=== PATIENT | male | born 1965 | race Caucasian/White ===

== ENCOUNTER 2018-07-12 07:41 | Inpatient (IN) | payer MEDICAID ==
[~2018-07-12] VITALS: Ht 172.7 cm; Wt 86.4 kg
[2018-07-12 08:35] LABS: BASOPHIL % 0.2 % (0-2); PLATELET COUNT 270 x10^3mcL (130-400)
[2018-07-12 08:45] LABS: CALCIUM 9.3 mg/dL (8.5-10.1); CARBON DIOXIDE 21.8 mmol/L (21-32); CHLORIDE SERUM 103 mmol/L (98-107); CREATININE SERUM 1.3 mg/dL (0.7-1.3); GFR1 > 60 mL/min; GLUCOSE SERUM 160 mg/dL (74-106); POTASSIUM SERUM 3.5 mmol/L (3.5-5.1); SODIUM SERUM 138 mmol/L (136-145)
[2018-07-12 08:46] LABS: CK-MB 0.8 ng/mL (0-3.6); FREE T4 1.19 ng/dL (0.76-1.46); FREE THYROXINE INDEX 3.9 ug/dL (1.4-4.5); T3 TOTAL 1.15 ng/mL; T4(THYROXINE) 11.9 ug/dL (4.7-13.3)
[2018-07-12 08:50] LABS: RED CELL DISTRIBUTION WIDTH 14.6 % (11.5-14.5)
[2018-07-12 08:55] LABS: microscopic required? YES; urine erythrocyte NEGATIVE (NEGATIVE)
[2018-07-12 09:04] LABS: ALBUMIN 4.2 g/dL (3.4-5.0); ALKALINE PHOSPHATASE 78 U/L (46-116); ALT/SGPT 36 U/L (16-63); AST/SGOT 18 U/L (15-37); BILIRUBIN TOTAL 0.41 mg/dL (0.20-1.00)
[2018-07-12 09:08] LABS: TOTAL PROTEIN, SERUM 8.9 g/dL (6.4-8.2)
[2018-07-12 09:08] LABS: AMPHETAMINE QUAL UR NONE DETECTED (See below)
[2018-07-12 09:35] LABS: ERYTHROCYTE SED RATE 13 mm/hr (0-20)
[2018-07-12 09:36] LABS: C REACTIVE PROTEIN < 0.2 mg/dL (<=0.9)
[2018-07-12 11:56] VITALS: BP 141/71
[2018-07-12 12:17] LABS: CHOLESTEROL/HDL RATIO 4.5
[2018-07-12 16:33] VITALS: BP 148/77
[2018-07-12 21:10] VITALS: BP 151/81
[2018-07-12 22:00] VITALS: BP 138/81; BP 138/82
[2018-07-13 05:43] VITALS: BP 132/74
[2018-07-13 06:10] LABS: CALCIUM 8.3 mg/dL (8.5-10.1); CARBON DIOXIDE 27.5 mmol/L (21-32); CHLORIDE SERUM 106 mmol/L (98-107); GFR1 > 60 mL/min; GLUCOSE SERUM 93 mg/dL (74-106); POTASSIUM SERUM 4.9 mmol/L (3.5-5.1); SODIUM SERUM 141 mmol/L (136-145)
[2018-07-13 06:15] LABS: BASOPHIL % 0.4 % (0-2); PLATELET COUNT 238 x10^3mcL (130-400); RED CELL DISTRIBUTION WIDTH 14.5 % (11.5-14.5)
[2018-07-13 09:09] VITALS: BP 149/77
[2018-07-13 09:50] VITALS: BP 149/77
== END 2018-07-13 12:18 | disposition home or self-care (01) | DRG 243 ==
LOC: ED 07:41 → DU 10:30
PROVIDERS: Internal Medicine; Specialist
DX: K21.9 Gastro-esophageal reflux disease without esophagitis (principal); N17.0 Acute kidney failure with tubular necrosis; E78.5 Hyperlipidemia, unspecified; I16.0 Hypertensive urgency; R80.9 Proteinuria, unspecified
CPT/HCPCS: 36600; 83880; 84439; J3475; J7030; Q0092; Q9967

== ENCOUNTER 2020-02-22 04:23 | Inpatient (IN) | payer OTHER ==
[~2020-02-22] VITALS: Ht 172.7 cm; Wt 89.4 kg
[2020-02-22 05:11] LABS: BASOPHIL % 0.2 % (0-2); PLATELET COUNT 236 x10^3mcL (130-400); RED CELL DISTRIBUTION WIDTH 14.5 % (11.5-14.5)
[2020-02-22 05:26] LABS: ALBUMIN 3.7 g/dL (3.4-5.0); BILIRUBIN TOTAL 0.3 mg/dL (0.20-1.00); CALCIUM 8.6 mg/dL (8.5-10.1); CARBON DIOXIDE 26.9 mmol/L (21-32); CREATININE SERUM 1.4 mg/dL (0.7-1.3); MAGNESIUM 1.8 mg/dL (1.8-2.4); TOTAL PROTEIN, SERUM 7.5 g/dL (6.4-8.2)
[2020-02-22 05:33] LABS: T3 TOTAL 1.2 ng/mL
[2020-02-22 05:34] LABS: FREE T4 1.15 ng/dL (0.76-1.46); FREE THYROXINE INDEX 3.3 ug/dL (1.4-4.5); T4(THYROXINE) 9.9 ug/dL (4.7-13.3)
[2020-02-22 05:39] LABS: AMPHETAMINE QUAL UR NONE DETECTED (See below)
[2020-02-22 05:58] LABS: microscopic required? YES; urine erythrocyte TRACE (NEGATIVE)
[2020-02-22] MEDS ORDERED: ACID REDUCER20 MG PO (06:17)
[2020-02-22 08:31] VITALS: BP 169/72
[2020-02-22 08:49] LABS: CHOLESTEROL/HDL RATIO 5.7
[2020-02-22 12:02] VITALS: BP 165/87
[2020-02-22 22:35] VITALS: BP 162/80
[2020-02-23 05:36] VITALS: BP 172/85
[2020-02-23 06:31] LABS: BASOPHIL % 0.4 % (0-2); PLATELET COUNT 228 x10^3mcL (130-400)
[2020-02-23 06:45] LABS: RED CELL DISTRIBUTION WIDTH 14.7 % (11.5-14.5)
[2020-02-23 06:54] LABS: CALCIUM 8.7 mg/dL (8.5-10.1); CARBON DIOXIDE 25.9 mmol/L (21-32); CHLORIDE SERUM 105 mmol/L (98-107); GFR1 > 60 mL/min; GLUCOSE SERUM 103 mg/dL (74-106); MAGNESIUM 2.3 mg/dL (1.8-2.4); POTASSIUM SERUM 3.7 mmol/L (3.5-5.1); SODIUM SERUM 140 mmol/L (136-145)
[2020-02-23 08:32] VITALS: BP 180/89
[2020-02-23] MEDS ORDERED: METOPROLOL TART25 M1 PO (11:04)
[2020-02-23] MEDS ORDERED: LIPITOR10 MG PO (11:04)
[2020-02-23 11:06] VITALS: BP 165/91
[2020-02-23] MEDS ORDERED: CLONIDINE HYDR0.1 M1 PO (11:06)
[2020-02-23 11:16] VITALS: BP 165/91
[2020-02-23 11:21] VITALS: BP 165/91
== END 2020-02-23 11:46 | disposition home or self-care (01) | DRG 812 ==
LOC: ED 04:23 → DU 05:37
PROVIDERS: Emergency Medicine; ADMIT Family Medicine
DX: T43.611A Poisoning by caffeine, accidental (unintentional), initial encounter (principal); N17.0 Acute kidney failure with tubular necrosis; K21.9 Gastro-esophageal reflux disease without esophagitis; E87.6 Hypokalemia; E78.5 Hyperlipidemia, unspecified; Y92.89 Other specified places as the place of occurrence of the external cause
CPT/HCPCS: 84439; G0378; J0360; J7030; Q0092